=== PATIENT | male | born 1950 | race Caucasian/White ===

== ENCOUNTER 2018-07-14 19:17 | Emergency (ER) | payer MEDICARE ==
[2018-07-14] MEDS ORDERED: Sodium Chloride 0.9% 10 ML Syringe FLUSH PRN (19:59)
[2018-07-14] MEDS ORDERED: Sodium Chloride 0.9% 1,000 ML IV SCH (20:15)
--- NOTE | 2018-07-14 22:16 | EDM.PDOC ---
ED HPI GENERAL MEDICAL PROBLEM - General Chief Complaint: General Stated Complaint: DIZZINESS, NAUSEA Time Seen by Provider: 07/14/18 19:57 Source of Information: Reports: Patient History Limitations: Reports: No Limitations - History of Present Illness INITIAL COMMENTS - FREE TEXT/NARRATIVE: chief complaint: dizziness This is a 68 year old male present to ER via POV, reports he had a busy day was very active, not eating or drinking much, he went out to golf, was on maikel 3 when he got dizzy and felt sick to his stomach. He is usually very healthy , reports last ER visit was when he was 3 years old. His symptoms persisted, he became worried and came to ER for further care. denies any chest discomfort, shortness of breath, fever, chills, nausea or vomiting. last seen in clinic about 2 weeks ago for high cholesterol and was started on a Statin. does drink a beer occasional and have a single cigar. no chronic health conditions except for high cholesterol. Onset: Sudden Duration: Hour(s): Location: Reports: Generalized Quality: Reports: Other (feeling sick to stomach without vomiting.) Improves with: Reports: Rest (resolving ) Worsens with: Reports: None Context: Reports: Activity Associated Symptoms: Reports: Loss of Appetite (feeling sick to stomach) Treatments GROUP HOME SUPERVISOR: Reports: Home Treatments (drank one beer) - Related Data Allergies Allergy/AdvReac Type Severity Reaction Status Date / Time No Known Allergies Allergy Verified 07/14/18 19:31 Home Meds: Home Meds *Cholesterol 1 tab PO BEDTIME 07/14/18 [History] Aspirin [[place] Aspirin] 81 mg PO BEDTIME 07/14/18 [History] Lisinopril 10 mg PO BEDTIME 07/14/18 [History] Past Medical History HEENT History: Reports: Impaired Vision Cardiovascular History: Reports: High Cholesterol, Hypertension Musculoskeletal History: Reports: Fracture - Infectious Disease History Infectious Disease History: Reports: Chicken Pox, Measles, Mumps Social & Family History - Tobacco Use Smoking Status *Q: Light Tobacco Smoker Years of Tobacco use: 40 Packs/Tins Daily: 0.5 - Caffeine Use Caffeine Use: Reports: Coffee - Alcohol Use Days Per Week of Alcohol Use: 7 Number of Drinks Per Day: 1 Total Drinks Per Week: 7 - Recreational Drug Use Recreational Drug Use: No - Living Situation & Occupation Living situation: Reports: Single Occupation: Employed (lives in the [facility] [place] area. Family [place] a [place], he is here at the cabin. Employed as a Process Consultant.) ED ROS GENERAL - Review of Systems Review Of Systems: See Below Constitutional: Reports: Decreased Appetite HEENT: Reports: No Symptoms Respiratory: Reports: No Symptoms Cardiovascular: Reports: No Symptoms Endocrine: Reports: No Symptoms GI/Abdominal: Reports: Decreased Appetite, Other (reports feeling sick to stomache, not nauseated, no vomiting.). Denies: Abdominal Pain, Black Stool, Bloody Stool, Constipation, Diarrhea : Reports: No Symptoms Musculoskeletal: Reports: No Symptoms Skin: Reports: No Symptoms Neurological: Reports: Dizziness (resolving since being in ER) Psychiatric: Reports: No Symptoms Hematologic/Lymphatic: Reports: No Symptoms Immunologic: Reports: No Symptoms ED EXAM, GENERAL - Physical Exam Exam: See Below Exam Limited By: No Limitations General Appearance: Alert, WD/WN, No Apparent Distress Eye Exam: Bilateral Eye: EOMI, PERRL Ears: Normal External Exam, Normal Canal, Hearing Grossly Normal, Normal TMs Ear Exam: Bilateral Ear: Auricle Normal, Canal Normal, TM normal Nose: Normal Inspection, Normal Mucosa, No Blood Throat/Mouth: Normal Inspection, Normal Lips, Normal Teeth, Normal Gums, Normal Oropharynx, Normal Voice, No Airway Compromise Head: Atraumatic, Normocephalic Neck: Normal Inspection, Supple, Non-Tender, Full Range of Motion Respiratory/Chest: No Respiratory Distress, Lungs Clear, Normal Breath Sounds, No Accessory Muscle Use, Chest Non-Tender Cardiovascular: Normal Peripheral Pulses, Regular Rate, Rhythm, No Edema, No Gallop, No JVD, No Murmur, No Rub GI/Abdominal: Normal Bowel Sounds, Soft, Non-Tender, No Organomegaly, No Distention, No Abnormal Bruit, No Mass (Male) Exam: Deferred Rectal (Males) Exam: Deferred Back Exam: Normal Inspection, Full Range of Motion, NT Extremities: Normal Inspection, Normal Range of Motion, Non-Tender, Normal Capillary Refill, No Pedal Edema Neurological: Alert, Oriented, Normal Cognition, Normal Gait, No Motor/Sensory Deficits Psychiatric: Normal Affect, Normal Mood Skin Exam: Warm, Dry, Intact, Normal Color, No Rash Lymphatic: No Adenopathy Course - Vital Signs Last Recorded V/S: Last Vital Signs Temp 36.9 C 07/14/18 19:39 Pulse 74 07/14/18 19:39 Resp 16 07/14/18 19:39 BP 152/78 H 07/14/18 19:39 Pulse Ox 96 07/14/18 19:39 - Orders/Labs/Meds Orders: Active Orders 24 hr Category Date Time Status Cardiac Monitoring [RC] .As Directed Care 07/14/18 19:58 Active EKG Documentation Completion [RC] ASDIRECTED Care 07/14/18 19:59 Active Sodium Chloride 0.9% [Normal Saline] 1,000 ml Med 07/14/18 20:15 Active IV ASDIRECTED Sodium Chloride 0.9% [Saline Flush] Med 07/14/18 19:59 Active 10 ml FLUSH ASDIRECTED PRN Saline Lock Insert [OM.PC] Routine Oth 07/14/18 19:59 Ordered EKG 12 Lead [EK] Urgent Ther 07/14/18 19:58 Ordered Medication Orders Sodium Chloride (Normal Saline) 1,000 mls @ 999 mls/hr IV ASDIRECTED ZANDRA Last Admin: 07/14/18 20:22 Dose: 999 mls/hr Sodium Chloride (Saline Flush) 10 ml FLUSH ASDIRECTED PRN PRN Reason: Keep Vein Open Last Admin: 07/14/18 20:22 Dose: 10 ml Labs: Laboratory Tests 07/14/18 07/14/18 07/14/18 Range/Units 19:59 20:00 20:00 WBC 7.4 (4.5-11.0) K/uL RBC 4.66 (4.30-5.90) M/uL Hgb 15.2 H (12.0-15.0) g/dL Hct 43.1 (40.0-54.0) % MCV 93 (80-98) fL MCH 33 H (27-31) pg MCHC 35 (32-36) % Plt Count 209 (150-400) K/uL Neut % (Auto) 50 (36-66) % Lymph % (Auto) 35 (24-44) % [place] % (Auto) 9 H (2-6) % Eos % (Auto) 5 H (2-4) % Baso % (Auto) 0 (0-1) % Sodium 139 L (140-148) mmol/L Potassium 3.7 (3.6-5.2) mmol/L Chloride 103 (100-108) mmol/L Carbon Dioxide 29 (21-32) mmol/L Anion Gap 10.7 (5.0-14.0) mmol/L BUN 19 H (7-18) mg/dL Creatinine 1.2 (0.8-1.3) mg/dL Est Cr Clr Drug Dosing 61.88 mL/min Estimated GFR (MDRD) > 60 (>60) Glucose 92 (74-106) mg/dL Calcium 9.3 (8.5-10.1) mg/dL Total Bilirubin 0.6 (0.2-1.0) mg/dL AST 27 (15-37) U/L ALT 57 (12-78) U/L Alkaline Phosphatase 62 (46-116) U/L Troponin I < 0.017 (0.000-0.056) ng/mL Total Protein 7.2 (6.4-8.2) g/dL Albumin 4.3 (3.4-5.0) g/dL Globulin 2.9 (2.3-3.5) g/dL Albumin/Globulin Ratio 1.5 (1.2-2.2) Amylase 53 (25-115) U/L Lipase 307 (73-393) U/L TSH, Ultra Sensitive 3.100 (0.358-3.740) uIU/mL Urine Color Yellow Urine Appearance Clear Urine pH 5.0 (4.5-8.0) Ur Specific [place] 1.015 (1.008-1.030) Urine Protein Negative (NEGATIVE) mg/dL Urine Glucose (UA) Normal (NEGATIVE) mg/dL Urine Ketones Negative (NEGATIVE) mg/dL Urine Occult Blood Negative (NEGATIVE) Urine Nitrite Negative (NEGAITVE) Urine Bilirubin Negative (NEGATIVE) Urine Urobilinogen Normal (NORMAL) mg/dL Ur Leukocyte Esterase Negative (NEGATIVE) Urine RBC Not seen (0-5) Urine WBC Not seen (0-5) Ur Epithelial Cells Not seen Amorphous Sediment Few Urine Bacteria Not seen Urine Mucus Not seen Meds: Medications Generic Name Dose Route Start Last Admin Trade Name Freq PRN Reason Stop Dose Admin Sodium Chloride 1,000 mls @ 999 mls/hr 07/14/18 20:15 07/14/18 20:22 Normal Saline IV 999 mls/hr ASDIRECTED ZANDRA Administration Sodium Chloride 10 ml 07/14/18 19:59 07/14/18 20:22 Saline Flush FLUSH 10 ml ASDIRECTED PRN Administration Keep Vein Open - Re-Assessments/Exams Free Text/Narrative Re-Assessment/Exam: 07/14/18 19:58 -Mr. Lozada, he is worried about his heart, denies any chest pain, palpitations, shortness of breath, arm, neck or jaw pain. will do labs and EKG to rule out any acute cause give 1 liter of Normal Saline Labs were normals except for a mild low sodium, mild elevated BUN 19. Other labs CBC, CMP, TSH, TROPONIN I, URINE WITH MICRO. all in normal range EKG; normal sinus rhyme without ectopy Vital signs. 39.9-74-16 B/P 152/78 O2 sat 96% on room air Wt. 108.2 assessment: mild dehydration 07/14/18 22:33 -Mr. Lozada reports feeling much better after one liter of fluids, all symptoms have resolved. feeling hungry ready to go home. -review all labs with Mr. Lozada and given a copy for home health records. -will plan to discharge to home, advise to follow up in Primary Care for recheck -return to ER if symptoms return or has any concerns. -Mr. Lozada agrees with plan of care. Departure - Departure Time of Disposition: 22:13 Disposition: Home, Self-Care 01 Condition: Good Clinical Impression: Dehydration symptoms - Discharge Information *PRESCRIPTION DRUG MONITORING PROGRAM REVIEWED*: Not Applicable *COPY OF PRESCRIPTION DRUG MONITORING REPORT IN PATIENT WILLIAMS: Not Applicable Instructions: Dehydration, Adult, [id number] Referrals: PCP,None [Primary Care Provider] - Forms: ED Department Discharge Care Plan Goals: Dehydration -push fluids, drink 8 to 10 glasses of water a day when active -rest -eat meals 3 times a day Please follow up with Primary Care Doctor in 3 to 5 days for recheck Return to ER if symptoms return or has any concerns. - Problem List & Annotations (1) Dehydration symptoms SNOMED Code(s): 4760609 Code(s): R63.8 - OTHER SYMPTOMS AND SIGNS CONCERNING FOOD AND FLUID INTAKE Status: Acute Priority: High Current Visit: Yes - Problem List Review Problem List Initiated/Reviewed/Updated: Yes - My Orders Last 24 Hours: My Active Orders 07/14/18 19:58 Cardiac Monitoring [RC] .As Directed EKG 12 Lead [EK] Urgent 07/14/18 19:59 EKG Documentation Completion [RC] ASDIRECTED Sodium Chloride 0.9% [Saline Flush] 10 ml FLUSH ASDIRECTED PRN Saline Lock Insert [OM.PC] Routine 07/14/18 20:15 Sodium Chloride 0.9% [Normal Saline] 1,000 ml IV ASDIRECTED - Assessment/Plan Last 24 Hours: My Active Orders 07/14/18 19:58 Cardiac Monitoring [RC] .As Directed EKG 12 Lead [EK] Urgent 07/14/18 19:59 EKG Documentation Completion [RC] ASDIRECTED Sodium Chloride 0.9% [Saline Flush] 10 ml FLUSH ASDIRECTED PRN Saline Lock Insert [OM.PC] Routine 07/14/18 20:15 Sodium Chloride 0.9% [Normal Saline] 1,000 ml IV ASDIRECTED Plan: Dehydration -push fluids, drink 8 to 10 glasses of water a day when active -rest -eat meals 3 times a day Please follow up with Primary Care Doctor in 3 to 5 days for recheck Return to ER if symptoms return or has any concerns.
== END 2018-07-14 22:31 | disposition home or self-care (01) ==
LOC: JP.ED 19:17
DX: R42 Dizziness and giddiness (principal); R11.0 Nausea; F17.210 Nicotine dependence, cigarettes, uncomplicated; I10 Essential (primary) hypertension; E78.00 Pure hypercholesterolemia, unspecified; Z79.82 Long term (current) use of aspirin
CPT/HCPCS: 36415; 80053; 81001; 82150; 83690; 84443; 84484; 85025; 93005; 96360; 99284; J7030

== ENCOUNTER 2024-01-22 11:26 | Emergency (ER) | payer MEDICARE, OTHER ==
[2024-01-22 12:56] LABS: BASOPHILS ABSOLUTE AUTO 0.05 K/uL (0.00-0.10); BASOPHILS PERCENT AUTO 0.7 % (0.1-1.3); EOSINOPHILS ABSOLUTE AUTO 0.35 K/uL (0.00-0.40); EOSINOPHILS PERCENT AUTO 4.8 % (0.0-5.4); HEMATOCRIT 40.3 % (38.4-49.7); HEMOGLOBIN 14.8 g/dL (12.9-16.9); IMMATURE GRAN PERCENT AUTO 0.3 % (0.0-0.7); LYMPHOCYTES ABSOLUTE AUTO 2.44 K/uL (0.8-3.3); LYMPHOCYTES PERCENT AUTO 33.5 % (11.4-47.7); MEAN CORPUSCULAR HGB CONC 36.7 g/dL (31.6-35.5); MEAN CORPUSCULAR VOLUME 92.6 fL (81.4-99.0); MONOCYTES ABSOLUTE AUTO 0.64 K/uL (0.20-0.90); MONOCYTES PERCENT AUTO 8.8 % (3.3-12.6); NEUTROPHILS ABSOLUTE AUTO 3.78 K/uL (1.0-7.6); NEUTROPHILS PERCENT AUTO 51.9 % (40.0-78.1); PLATELET COUNT,PLT 220 K/uL (130-375); RED BLOOD CELL COUNT 4.35 M/uL (4.14-5.76); WHITE BLOOD CELL COUNT,WBC 7.3 K/uL (3.2-11.0)
[2024-01-22 13:01] LABS: IMMATURE GRAN ABSOLUTE AUTO 0.02 K/uL (0.00-0.23)
[2024-01-22 13:16] LABS: ANION GAP 9.1 mmol/L (5.0-14.0); BLOOD UREA NITROGEN,BUN 17 mg/dL (7-18); CALCIUM 9.8 mg/dL (8.5-10.1); CARBON DIOXIDE,CO2 28 mmol/L (21-32); CHLORIDE,CL 103 mmol/L (100-108); CREATININE 1.1 mg/dL (0.8-1.3); EST CRCL DRUG DOSING (CG) 62.75 mL/min; ESTIMATED GFR 70 mL/min (>60); GLUCOSE RANDOM 100 mg/dL (74-106); POTASSIUM,K 3.9 mmol/L (3.6-5.2); SODIUM,NA 140 mmol/L (140-148)
[2024-01-22 13:17] LABS: C-REACTIVE PROTEIN < 0.50 mg/dL (<0.50)
== END 2024-01-22 15:02 | disposition home or self-care (01) ==
LOC: JP.ED 11:26
DX: L03.116 Cellulitis of left lower limb (principal); I10 Essential (primary) hypertension; E78.00 Pure hypercholesterolemia, unspecified; Z79.82 Long term (current) use of aspirin; Z79.899 Other long term (current) drug therapy
CPT/HCPCS: 36415; 73590-26-LT; 73590-LT; 80048; 85025; 85379; 86140; 93971-26-LT; 93971-LT; 99284